=== PATIENT | female | born 1955 | race Caucasian/White ===

== ENCOUNTER 2019-06-13 07:44 | Observation (INO) | payer OTHER ==
[~2019-06-13 07:44] MED LIST: CEFAZOLIN 2 GM/50 ML (PMX) 50 ML IVPB
[2019-06-13] MEDS: SOD CHLORIDE 0.9% 1,000 ML IV ×2 (08:57→20:20)
[2019-06-13] MEDS ORDERED: ROCURONIUM 50 MG INJ (10:31)
[2019-06-13] MEDS ORDERED: LIDOCAINE 2% (SDV) 5 ML INJ (10:31)
[2019-06-13] MEDS ORDERED: MEPERIDINE 100 MG INJ (10:31)
[2019-06-13] MEDS ORDERED: GLYCOPYRROLATE 0.4 MG INJ ×2 (10:31→10:37)
[2019-06-13] MEDS ORDERED: PROPOFOL 20 ML (10:31)
[2019-06-13] MEDS ORDERED: SUCCINYLCHOLINE CHLORIDE 100 MG/5 ML SYG IV (10:31)
[2019-06-13] MEDS ORDERED: NEOSTIGMINE 3 MG/3 ML SYRINGE ×2 (10:31→10:37)
[2019-06-13] MEDS ORDERED: ONDANSETRON 4 MG INJ (10:32)
[2019-06-13] MEDS ORDERED: METOCLOPRAMIDE 10 MG INJ (10:32)
[2019-06-13] MEDS ORDERED: CEFAZOLIN 1 GM INJ (11:01)
[2019-06-13] MEDS ORDERED: ATROPINE 1 MG/10 ML SYRINGE (11:40)
[2019-06-13] MEDS ORDERED: DIPHENHYDRAMINE 50 MG INJ IV (12:30)
[2019-06-13] MEDS ORDERED: ONDANSETRON 4 MG INJ IV ×3 (12:30→13:30)
[2019-06-13] MEDS ORDERED: MIDAZOLAM 1 MG/ML 2 ML INJ IV (12:30)
[2019-06-13] MEDS ORDERED: MEPERIDINE 25 MG INJ IV ×2 (12:30→13:00)
[2019-06-13] MEDS ORDERED: FENTAnyl 50 MCG/ML VIAL IV ×6 (12:30→13:00)
[2019-06-13] MEDS ORDERED: hydrALAzine 20 MG INJ IV ×2 (12:30→13:00)
[2019-06-13] MEDS ORDERED: LABETALOL HCL 20MG INJ IV (12:30)
[2019-06-13] MEDS ORDERED: HYDROmorphONE 1 MG/5 ML IV SYRINGE IV ×4 (12:30→13:00)
[2019-06-13] MEDS ORDERED: EPHEDrine 25 MG/5 ML SYG IV ×2 (12:30→13:00)
[2019-06-13] MEDS ORDERED: METOCLOPRAMIDE 10 MG INJ IV ×2 (12:30→13:00)
[2019-06-13] MEDS: HYDROmorphONE 1 MG/5 ML IV SYRINGE IV ×2 (13:00→13:16)
[2019-06-13] MEDS ORDERED: OXYCODONE/ACETAMINOPHEN (5/325) TAB PO (13:00)
[2019-06-13] MEDS ORDERED: ALBUTEROL 0.083% (NEB) 2.5 MG/3 ML AMP HHN (13:00)
[2019-06-13] MEDS ORDERED: ALBUMIN HUMAN 5% 250 ML IV (13:00)
[2019-06-13] MEDS ORDERED: TRIMETHOBENZAMIDE 100 MG/ML VIAL IM (13:00)
[2019-06-13] MEDS: D5W-0.45 NACL + KCL 20 MEQ 1,000 ML IV ×4 (13:10→22:41)
[2019-06-13] MEDS ORDERED: ACETAMINOPHEN 1000MG/100ML IV 100 ML IVPB (13:30)
[2019-06-13] MEDS: morphine 2 MG INJ IV ×2 (14:12→18:35)
[2019-06-14] MEDS: morphine 2 MG INJ IV (02:05)
[2019-06-14] MEDS: HYDROCODONE/APAP (5/325) TAB PO ×2 (06:07→15:28)
[2019-06-14] MEDS: D5W-0.45 NACL + KCL 20 MEQ 1,000 ML IV (07:03)
[2019-06-14] MEDS: SOD CHLORIDE 0.9% 1,000 ML IV (09:40)
== END 2019-06-14 17:50 | disposition home or self-care (01) ==
LOC: SDS 07:44 → REC 13:11 → MS1 13:55
DX: K80.10 Calculus of gallbladder with chronic cholecystitis without obstruction (principal)
CPT/HCPCS: 47562; 88304; 99217